=== PATIENT | female | born 1980 | race Caucasian/White ===

== ENCOUNTER 2016-08-10 17:30 | Emergency (ER) | payer OTHER ==
[2016-08-10 17:31] VITALS: BMI 28.4
--- NOTE | 2016-08-10 18:28 | ED PDOC ---
HPI: General Adult Time Seen by Provider: 08/10/16 18:07 Chief Complaint (Nursing): Abdominal Pain Chief Complaint (Provider): abdominal pain History Per: Patient Additional Complaint(s): 35-year-old female presents to emergency department with left lower quadrant abdominal pain. She went to her block trader office today and was told that her test is positive. Patient had a tubal ligation last December and she was told by her block trader, Dr. Blair to come to ED for further evaluation. Patient rates pain as a 6 out of 10, she denies any nausea or vomiting, no dysuria or hematuria. Vaginal bleeding at this time. Past Medical History Reviewed: Historical Data, Nursing Documentation, Vital Signs Vital Signs: Last Vital Signs Temp 98.4 F 08/10/16 17:39 Pulse 84 08/10/16 17:39 Resp 20 08/10/16 17:39 BP 146/79 08/10/16 17:39 Pulse Ox 100 08/10/16 19:04 - Medical History PMH: Migraine - Surgical History Other surgeries: D&C, surgery for endometriosis, tubal ligation - Family History Family History: States: No Known Family Hx - Living Arrangements Living Arrangements: With Family - Social History Current smoker - smoking cessation education provided: No Alcohol: None Drugs: Denies - Home Medications Home Medications: Ambulatory Orders Medication Instructions Recorded Vit Calc,Iron,Folic 1 tab PO DAILY 12/31/15 [ Vitamins] Benzocaine/Menthol INTERMEDIATE [Dermoplast] 1 sprays TOP PRN PRN #0 aero 01/02/16 Ibuprofen [Motrin Tab] 600 mg PO Q6 PRN #0 tab 01/02/16 - Allergies Allergies/Adverse Reactions: Allergies Allergy/AdvReac Type Severity Reaction Status Date / Time No Known Allergies Allergy Verified 07/06/15 09:53 Review of Systems ROS Statement: Except As Marked, All Systems Reviewed And Found Negative Constitutional: Negative for: Fever Cardiovascular: Negative for: Chest Pain Gastrointestinal: Positive for: Abdominal Pain. Negative for: Nausea, Vomiting Genitourinary Female: Positive for: Pelvic Pain. Negative for: Dysuria, Frequency, Hematuria, Vaginal Discharge, Vaginal Bleeding Physical Exam - Reviewed Nursing Documentation Reviewed: Yes Vital Signs Reviewed: Yes - Physical Exam Appears: Positive for: Well, Non-toxic, No Acute Distress Skin: Negative for: Rash Eye Exam: Positive for: Normal appearance, EOMI, PERRL Cardiovascular/Chest: Positive for: Regular Rate, Rhythm Respiratory: Positive for: Normal Breath Sounds Gastrointestinal/Abdominal: Positive for: Tenderness (LLQ). Negative for: Distended, Guarding, Rebound Back: Negative for: L CVA Tenderness, R CVA Tenderness Neurologic/Psych: Positive for: Alert, Oriented - Laboratory Results Result Diagrams: 08/10/16 19:35 08/10/16 19:35 Urine POC: Positive Urine dip results: Positive for: Blood (small). Negative for: Leukocyte Esterase, Nitrate, Ketones, Glucose, Bilirubin, Protein - ECG O2 Sat by Pulse Oximetry: 100 Pulse Ox Interpretation: Normal Medical Decision Making Medical Decision Makin35 year old female with abdominal pain Plan: Urine test and dip OB US IVF Pain meds declined Disposition - Clinical Impression Clinical Impression: Abdominal pain during - Patient ED Disposition Is Patient to be Admitted: Transfer of Care - Disposition Disposition: Transfer of Care Disposition Time: 20:00 Condition: STABLE Patient Signed Over To: Rogerio Hernandez Handoff Comments: Signed out pending diagnostic testing results and final disposition
[2016-08-10] MEDS ORDERED: Sodium Chloride 0.9% 1,000 ML IV STA (19:04)
[2016-08-10 19:43] LABS: BASO % 0.5 % (0.0-2.0); EOS # 0.1 K/uL (0.0-0.7); EOS % 1.5 % (0.0-4.0); HEMATOCRIT 43.7 % (34.0-47.0); LYMPH # 2.7 K/uL (1.0-4.3); LYMPH % 35.2 % (20.0-40.0); MEAN CELL VOLUME 90.2 fl (81.0-99.0); MEAN CORPUSCULAR HEMOGLOBIN 29.3 pg (27.0-31.0); MEAN CORPUSCULAR HGB CONC 32.4 g/dL (33.0-37.0); MEAN PLATELET VOLUME 8.2 fl (7.2-11.7); MONO # 0.7 K/uL (0.0-0.8); MONO % 8.7 % (0.0-10.0); NEUT # 4.1 K/uL (1.8-7.0); NEUT % 54.1 % (50.0-75.0); RED CELL DISTRIBUTION WIDTH 12.9 % (11.5-14.5); WHITE BLOOD COUNT 7.5 K/uL (4.8-10.8)
[2016-08-10 19:49] LABS: ALB/GLOB RATIO 1.3 (1.0-2.1); ALKALINE PHOSPHATASE 94 U/L (38-126); ALT/SGPT 18 U/L (9-52); AST/SGOT 27 U/L (14-36); BILIRUBIN,TOTAL 0.7 mg/dl (0.2-1.3); BLOOD UREA NITROGEN 8 mg/dl (7-17); CALCIUM 9.9 mg/dL (8.4-10.2); CARBON DIOXIDE 23 mmol/L (22-30); CHLORIDE 105 mmol/L (98-107); GFR AFRICAN-AMERICAN > 60; GLUCOSE,RANDOM 90 mg/dL (65-105); POTASSIUM 3.8 MMOL/L (3.6-5.0); SODIUM 141 mmol/l (132-148); TOTAL PROTEIN 8.7 G/DL (6.3-8.2)
--- NOTE | 2016-08-10 21:11 | US ---
EXAM: US , Transvaginal CLINICAL HISTORY: 35 years old, female; Pain; Other: Pelvic pain; Gestational age or lmp: 06/29/16; ; Prior surgery; Surgery date: 6+ months; Surgery type: S/P tubuligation 01/02; Additional info: with abdominal pain TECHNIQUE: Real-time transvaginal obstetrical ultrasound of the maternal pelvis and a first trimester with image documentation. Transvaginal imaging was used for better evaluation of the fetus and adnexa. COMPARISON: No relevant prior studies available. FINDINGS: Gestation: Tiny saclike structure within uterus. No yolk sac. No pole. Uterus/cervix: Retroverted uterus. Endometrium: 1.5 cm in thickness. Closed cervix. Ovaries: RIGHT ovary: 1.3 x 1.0 x 1.1 cm anechoic lesion. LEFT ovary: Normal. 1.7 x 1.3 x 1.8 cm anechoic lesion within RIGHT adnexal region. Free fluid: Trace free fluid within pelvis. IMPRESSION: 1. Sac without pole or yolk sac. DDX: Early IUP, blighted ovum, ectopic (with pseudogestational sac). Close followup is recommended. 2. RIGHT ovarian cyst. 3. Probable RIGHT parovarian cyst. 4. Incidental/non-acute findings are described above.
--- NOTE | 2016-08-10 21:27 | ED PDOC ---
- Laboratory Results Result Diagrams: 08/10/16 19:35 08/10/16 19:35 Urine POC: Positive - ECG O2 Sat by Pulse Oximetry: 100 Medical Decision Making Medical Decision Making: pt signed out to me pending w/u. bHCG 600. u/s shows no IUP. early IUP vs ectopic. Dr. Reece at bedside and discussed case with Dr. Urrutia. pt ok for d/c to repeat labs in [address] OBGYN Dr. Barrett. Disposition - Clinical Impression Clinical Impression: Abdominal pain during - POA Present On Arrival: None - Disposition Referrals: Rachel Barrett MD [Staff Provider] - Disposition: Routine/Home Disposition Time: 21:26 Condition: STABLE Additional Instructions: Please follow the instructions of your OB-[facility]. Please followup in [address] Barrett for repeat testing. If you experience worsening abdominal pain, heavy bleeding, or any other concerning symptoms, please return to the E.R. Instructions: Abdominal Pain in (ED)
--- NOTE | 2016-08-10 21:29 | CP.PCM.PN ---
Subjective - Date & Time of Evaluation Date of Evaluation: 08/10/16 Time of Evaluation: 21:30 - Subjective Subjective: The patient is 35-year-old 2 para 2 last menstrual period June [id number] patient went to see her primary [employer] OPERATOR today due to missed menses PMD did office hCG was noted to be positive. Patient has a history of tubal ligation PMD suspected potential ectopic and the patient was referred to a [facility]. The patient reports minimal spotting minimal cramping denies any nausea or vomiting. Past medical history endometriosis Past surgical history tubal ligation Medications none No known drug allergies Social history denies alcohol tobacco use Obstetrical history 2 spontaneous normal vaginal deliveries patient's Objective - Vital Signs/Intake and Output Vital Signs (last 24 hours): Temp Pulse Resp BP Pulse Ox 98.4 F 84 20 146/79 100 08/10/16 17:39 08/10/16 17:39 08/10/16 17:39 08/10/16 17:39 08/10/16 20:08 - Labs Labs: 08/10/16 19:35 08/10/16 19:35 - Constitutional Appears: Well - Eye Exam Pupil Exam: PERRL - Neck Exam Neck Exam: Full ROM - Respiratory Exam Respiratory Exam: Clear to Ausculation Bilateral - Cardiovascular Exam Cardiovascular Exam: REGULAR RHYTHM - GI/Abdominal Exam GI & Abdominal Exam: Normal Bowel Sounds - Extremities Exam Extremities Exam: Normal Inspection - Skin Skin Exam: Normal Color Assessment and Plan - Assessment and Plan (Free Text) Assessment: 35-year-old positive test history of tubal ligation Sonogram done in the emergency room no intrauterine no obvious ectopic possible blighted ovum. I discussed the management of ectopic with the patient and partner we discussed medical and surgical management. With a beta of 600 is difficult to determine the location of the . The patient states that the was intrauterine she would want to keep the . The patient was given the option of methotrexate, surgical evaluation now, patient declines. Patient will like to wait 24-48 hours repeat a beta Quant and repeat a sonogram. The patient was given the opportunity ask questions answered and patient agrees with plan of care
[2016-08-10 21:50] VITALS: BP 122/78; PULSE 82; RESP 18; TEMP 98.6; O2SAT 98
== END 2016-08-10 21:50 | disposition home or self-care (01) ==
LOC: H.ER 17:30
DX: O26.891 Other specified pregnancy related conditions, first trimester (principal); R10.2 Pelvic and perineal pain; Z32.01 Encounter for pregnancy test, result positive; N83.201 Unspecified ovarian cyst, right side

== ENCOUNTER 2016-08-11 13:14 | Emergency (ER) | payer OTHER ==
[2016-08-11 15:56] VITALS: BP 121/68; PULSE 90; RESP 16; TEMP 98.1; O2SAT 100
--- NOTE | 2016-08-11 16:09 | ED PDOC ---
HPI: Abdomen Time Seen by Provider: 08/11/16 15:50 Chief Complaint (Nursing): Abdominal Pain Chief Complaint (Provider): Abdominal Pain History/Exam Limitations: no limitations Onset/Duration Of Symptoms: Days Location Of Pain/Discomfort: LLQ Additional Complaint(s): 35 year old female with a pertinent medical history of a tubal ligation presents to the ED with complaints of left lower quadrant pain. She was seen in the ED yesterday for the same complaint and vaginal bleeding. She reports that she continued to have LLQ abdominal pain and vaginal bleeding today. Her ultrasound revealed a gestational sac with no pole and her Beta-HCG was 600 yesterday. She denies having any other complaints. PMD: Delmy Johnson MD Past Medical History Reviewed: Historical Data, Nursing Documentation, Vital Signs Vital Signs: Last Vital Signs Temp 98.1 F 08/11/16 13:30 Pulse 90 08/11/16 13:30 Resp 16 08/11/16 13:30 BP 121/68 08/11/16 13:30 Pulse Ox 100 08/11/16 16:29 - Medical History PMH: Migraine - Surgical History Other surgeries: tubal ligation 1x year ago - Family History Family History: States: Unknown Family Hx - Social History Alcohol: None Drugs: Denies - Home Medications Home Medications: Ambulatory Orders Medication Instructions Recorded Vit Calc,Iron,Folic 1 tab PO DAILY 12/31/15 [ Vitamins] Benzocaine/Menthol JAIL [Dermoplast] 1 sprays TOP PRN PRN #0 aero 01/02/16 Ibuprofen [Motrin Tab] 600 mg PO Q6 PRN #0 tab 01/02/16 - Allergies Allergies/Adverse Reactions: Allergies Allergy/AdvReac Type Severity Reaction Status Date / Time No Known Allergies Allergy Verified 07/06/15 09:53 Review of Systems ROS Statement: Except As Marked, All Systems Reviewed And Found Negative Gastrointestinal: Positive for: Abdominal Pain (LLQ) Genitourinary Female: Positive for: Vaginal Bleeding Physical Exam - Reviewed Nursing Documentation Reviewed: Yes Vital Signs Reviewed: Yes - Physical Exam Appears: Positive for: Non-toxic, No Acute Distress Head Exam: Positive for: ATRAUMATIC, NORMOCEPHALIC Skin: Positive for: Normal Color, Warm, Dry Respiratory: Negative for: Respiratory Distress Gastrointestinal/Abdominal: Positive for: Soft, Tenderness (LLQ) Neurologic/Psych: Positive for: Alert, Oriented (3x) - ECG O2 Sat by Pulse Oximetry: 100 (RA) Pulse Ox Interpretation: Normal Medical Decision Making Medical Decision Makin:50 Initial impression: 35 year old female with LLQ abdominal pain and vaginal bleeding. Initial plan: * beta-HCG, quantitative * CBC * reevaluation Pt requests to leave AMA. Adised of risk including vaginal bleeding/hemorrhage and . Advised to return to ED immediately if increased pain or bleeding Scribe Attestation: Documented by Rachel Powell, acting as a scribe for Omid Orlando MD. Provider Scribe Attestation: All medical record entries made by the Scribe were at my direction and personally dictated by me. I have reviewed the chart and agree that the record accurately reflects my personal performance of the history, physical exam, medical decision making, and the department course for this patient. I have also personally directed, reviewed, and agree with the discharge instructions and disposition. Disposition - Clinical Impression Clinical Impression: Abdominal pain during - Patient ED Disposition Is Patient to be Admitted: No - Disposition Referrals: [facility] [Outside] [facility] [Outside] Disposition: Against Medical Advice Disposition Time: 16:20 Condition: FAIR Instructions: Ectopic (ED), Threatened Miscarriage (ED) Print Language: LATVIAN
== END 2016-08-11 16:15 | disposition left against medical advice (07) ==
LOC: H.ER 13:14
DX: O26.899 Other specified pregnancy related conditions, unspecified trimester (principal)